=== PATIENT | female | born 1960 | race American Indian/Alaskan Native ===

== ENCOUNTER 2021-11-23 15:09 | Emergency (ER) | payer SELFPAY ==
[2021-11-23] MEDS ORDERED: ASPIRIN 325 MG TAB PO ONE (15:42)
--- NOTE | 2021-11-23 16:15 | XRay Report ---
CHEST 2 VIEWS INDICATION / CLINICAL INFORMATION: enlarged heart. COMPARISON: None available. FINDINGS: SUPPORT DEVICES: None. HEART / MEDIASTINUM: No significant abnormality. LUNGS / PLEURA: Mild chronic appearing linear scarring in the lingula. No acute findings. ADDITIONAL FINDINGS: No significant additional findings. IMPRESSION: 1. No acute findings. Heart size appears normal. Signer Name: Wilfred Bella MD Signed: 11/23/2021 4:10 PM Workstation Name: [id number]
[2021-11-23 16:45] LABS: Basophils # (Auto) 0.1 K/mm3 (0.0-0.1); Basophils % (Auto) 0.8 % (0.0-1.8); Eosinophils # (Auto) 0.2 K/mm3 (0.0-0.4); Eosinophils % (Auto) 2.2 % (0.0-4.3); Hematocrit 37.6 % (30.3-42.9); Hemoglobin 11.7 gm/dl (10.1-14.3); Lymphocytes # (Auto) 2.3 K/mm3 (1.2-5.4); Lymphocytes % (Auto) 27.9 % (13.4-35.0); Mean Corpuscular HGB Conc 31 % (30-34); Mean Corpuscular Volume 90 fl (79-97); Monocytes # (Auto) 0.7 K/mm3 (0.0-0.8); Monocytes % (Auto) 8.9 % (0.0-7.3); Platelet Count 367 K/mm3 (140-440); Red Blood Count 4.16 M/mm3 (3.65-5.03); Red Cell Distribution Width 14.3 % (13.2-15.2)
[2021-11-23 17:10] LABS: Alanine Aminotransferase 7 units/L (7-56); Albumin 3.9 g/dL (3.9-5); Blood Urea Nitrogen 11 mg/dL (7-17); Calcium 9.7 mg/dL (8.4-10.2); Hemolysis Index 11
[2021-11-23 17:13] LABS: BUN/Creatinine Ratio 16
[2021-11-23] MEDS ORDERED: ALBUTEROL 2.5 MG/3 ML NEBU IH ONE (17:35)
[2021-11-23] MEDS ORDERED: methylPREDNISolone Sod Succinate 125 MG/2 ML INJ IV ONE (17:35)
--- NOTE | 2021-11-23 20:04 | Emergency Department Report ---
ED Chest Pain HPI - General Chief Complaint: Chest Pain Stated Complaint: CHEST PAINS Time Seen by Provider: 11/23/21 17:31 Source: patient Mode of arrival: Ambulatory Limitations: No Limitations - History of Present Illness Initial Comments: ear pain , cough wheeze chest pain history of copd no fever -: Gradual Pain Radiation: none Worsens With: nothing - Related Data Previous Rx's Medication Instructions Recorded Last Taken Type Albuterol Mdi (or & Nicu Only) 2 puff IH QID PRN #8.5 gram 11/23/21 Unknown Rx [ProAir HFA Inhaler] Azithromycin [Zithromax Z-JUANITO] 250 mg PO DAILY #1 11/23/21 Unknown Rx Neomy/Polymyx B/Hc (Otic) Soln 4 drops OTIC TID #1 bottle 11/23/21 Unknown Rx [Cortisporin (Otic) Soln] Allergies Allergy/AdvReac Type Severity Reaction Status Date / Time No Known Allergies Allergy Verified 11/23/21 15:35 Heart Score - HEART Score History: Slightly suspicious EKG: Normal Age: 45-65 Risk factors: No known risk factors Troponin: < normal limit HEART Score: 1 - EKG Read Time Time EKG Completed: 20:04 EKG Read Time: 20:04 - Critical Actions Critical Actions: 0-3 pts:0.9-1.7%risk of adverse cardiac event.Candidate for discharge ED Review of Systems ROS: Stated complaint: CHEST PAINS Other details as noted in HPI Constitutional: denies: chills, fever Eyes: denies: eye pain, eye discharge, vision change ENT: denies: ear pain, throat pain Respiratory: denies: cough, shortness of breath, wheezing Cardiovascular: denies: chest pain, palpitations Endocrine: no symptoms reported Gastrointestinal: denies: abdominal pain, nausea, diarrhea Genitourinary: denies: urgency, dysuria, discharge Musculoskeletal: denies: back pain, joint swelling, arthralgia Skin: denies: rash, lesions Neurological: denies: headache, weakness, paresthesias Psychiatric: denies: anxiety, depression Hematological/Lymphatic: denies: easy bleeding, easy bruising ED Past Medical Hx - Medications Home Medications: Home Medications Medication Instructions Recorded Confirmed Last Taken Type Albuterol Mdi (or & Nicu Only) 2 puff IH QID PRN #8.5 gram 11/23/21 Unknown Rx [ProAir HFA Inhaler] Azithromycin [Zithromax Z-JUANITO] 250 mg PO DAILY #1 11/23/21 Unknown Rx Neomy/Polymyx B/Hc (Otic) Soln 4 drops OTIC TID #1 bottle 11/23/21 Unknown Rx [Cortisporin (Otic) Soln] ED Physical Exam - General Limitations: No Limitations General appearance: alert, in no apparent distress - Head Head exam: Present: atraumatic, normocephalic - Eye Eye exam: Present: normal appearance - ENT ENT exam: Present: mucous membranes moist - Neck Neck exam: Present: normal inspection - Respiratory Respiratory exam: Present: normal lung sounds bilaterally, wheezes. Absent: respiratory distress - Cardiovascular Cardiovascular Exam: Present: regular rate, normal rhythm. Absent: systolic murmur, diastolic murmur, rubs, gallop - GI/Abdominal GI/Abdominal exam: Present: soft, normal bowel sounds - Extremities Exam Extremities exam: Present: normal inspection - Back Exam Back exam: Present: normal inspection - Neurological Exam Neurological exam: Present: alert, oriented X3 - Psychiatric Psychiatric exam: Present: normal affect, normal mood - Skin Skin exam: Present: warm, dry, intact, normal color. Absent: rash ED Course Vital Signs 11/23/21 15:33 Temperature 98.6 F Pulse Rate 94 H Respiratory 16 Rate Blood Pressure 147/85 [Left] O2 Sat by Pulse 100 Oximetry ED Medical Decision Making - Lab Data Result diagrams: 11/23/21 16:03 11/23/21 16:03 Critical care attestation.: If time is entered above; I have spent that time in minutes in the direct care of this critically ill patient, excluding procedure time. ED Disposition Clinical Impression: Bronchitis, URI (upper respiratory infection), Pharyngitis Disposition: HOME / SELF CARE / HOMELESS Is pt being admited?: No Does the pt Need Aspirin: No Condition: Stable Instructions: Chronic Bronchitis (ED), Viral Respiratory Infection, [id number] Referrals: PRIMARY CARE,MD [Primary Care Provider] - 3-5 Days
[2021-11-23 20:39] VITALS: BP 140/86
--- NOTE | 2021-11-24 08:50 | Electrocardiograph Report ---
[facility] Test Date: 2021-11-23 Test Time: 15:37:09 Pat Name: SHRADDHA MOREJON Department: Room: Gender: F [employer]: TV : 1960 Requested By: ED DOC Order Number: [id number] Reading MD: Girish Nina Measurements Intervals [place] Rate: 100 P: 58 DC: 172 QRS: -38 QRSD: 80 T: 45 QT: 335 QTc: 432 Interpretive Statements Sinus tachycardia Probable left atrial enlargement Left axis deviation No previous ECG available for comparison Electronically Signed On 11-24-2021 8:50:06 EST by Girish Nina
== END 2021-11-23 20:36 | disposition home or self-care (01) ==
LOC: ED 15:09
DX: J40 Bronchitis, not specified as acute or chronic (principal); J06.9 Acute upper respiratory infection, unspecified; J02.9 Acute pharyngitis, unspecified
CPT/HCPCS: 36415; 71046; 80053; 84484; 85025; 93005; 93010; 96374; 99284; J2930